=== PATIENT | female | born 1995 | race Caucasian/White ===

== ENCOUNTER 2018-03-28 19:03 | Emergency (ER) | payer OTHER, SELFPAY ==
[2018-03-28] MEDS ORDERED: Sodium Chloride 0.9% 1,000 ML IV ONE (19:32)
[2018-03-28] MEDS ORDERED: Sodium Chloride 0.9% 10 ML Syringe FLUSH PRN (19:32)
[2018-03-28] MEDS ORDERED: Ketorolac 30 MG/ML SDV IVPUSH ONE (19:32)
[2018-03-28] MEDS ORDERED: Sodium Chloride 0.9% 2.5 ML Syringe FLUSH PRN (19:32)
[2018-03-28] MEDS ORDERED: methylPREDNISolone Sodium Succinate 125 MG/2 ML SDV IVPUSH ONE (19:32)
[2018-03-28] MEDS ORDERED: Ondansetron 4 MG/2 ML SDV IVPUSH ONE (19:32)
[2018-03-28] MEDS ORDERED: diphenhydrAMINE 50 MG/ML SDV IVPUSH ONE (19:33)
--- NOTE | 2018-03-28 19:35 | EDM.PDOC ---
ED HPI GENERAL MEDICAL PROBLEM - General Chief Complaint: Headache Stated Complaint: HEADACHES, NAUSEA Time Seen by Provider: 03/28/18 19:22 - History of Present Illness INITIAL COMMENTS - FREE TEXT/NARRATIVE: HISTORY AND PHYSICAL: History of present illness: The patient is a 22-year-old female who is a 3 para 3 and had a C- section which was scheduled on March 22 and says that when she was discharged on March 24Monday, she went home and felt fine and then Monday evening, 4 nights ago, she started having a left-sided headache. His been dull and achy and has been associated with nausea but no actual vomiting. She has no chest pain or abdominal pain and she feels that her scar is healing well and she is having a normal postoperative course and she has done this before. During the course of her she did have an episode of SVT and Dr. Harriet scales multimedia developer was involved and his consult has been reviewed by me. She had an echocardiogram and has a Zio monitor in place on her chest that she will mail back on April 05. She has not had any palpitations. With her she had a one shot spinal and no epidural anesthesia. She says she has had headaches before but this seems to not be going away which is what concerned her. She has Percocet and Motrin him her that she's been using for pain and does not feel like it's improving. She has no leg pain or swelling no urinary complaints and says she has not had a bowel movement since the surgery. She has attempted to contact the clinic and known has gotten back to her about these problems. She has no upper respiratory infections no sinus pressure or drainage no sore throat no ear pain. She has no pain in her neck. She says she feels worse when she lays down. Patient is currently breast-feeding and doing well with that. She is eating and drinking normally although she has the nausea. Patient says that with this she had no issues with hypertension or any other associated complications. She's not had hypertension with her prior pregnancies either. Please note that the headache did start 4 days ago and it has been constant not changing in intensity or character and the patient is here more because she could not get in touch with anyone in the clinic and it is not responded to her medications that she has. The headache was not sudden in onset Review of systems: As per history of present illness and below otherwise all systems reviewed and negative. Past medical history: As per history of present illness and as reviewed below otherwise noncontributory. Surgical history: As per history of present illness and as reviewed below otherwise noncontributory. Social history: No reported history of drug or alcohol abuse. Family history: As per history of present illness and as reviewed below otherwise noncontributory. Physical exam: General: Well-developed well-nourished female who is nontoxic and vital signs were noted by me. Her initial blood pressure 147/87 is higher than ones documented with her admission for her and delivery. She is nontoxic though and moves easily in the bed HEENT: Atraumatic, normocephalic, pupils reactive, negative for conjunctival pallor or scleral icterus, mucous membranes moist, throat clear, neck supple, nontender, trachea midline. There is some shoddy anterior cervical adenopathy but no nuchal rigidity and no posterior adenopathy. There is no sinus tenderness temporal artery tenderness or scalp tenderness. Lungs: Clear to auscultation, breath sounds equal bilaterally, chest nontender. Heart: S1S2, regular rate and rhythm no overt murmurs Abdomen: Soft, nondistended, nontender. Negative for masses or hepatosplenomegaly. Slightly quiet bowel sounds and her incision in the lower abdominal wall is healing nicely without any erythema or drainage. Pelvis: Stable nontender. Genitourinary: Deferred. Rectal: Deferred. Extremities: Atraumatic, negative for cords or calf pain. Neurovascular unremarkable. There is no pedal edema or leg asymmetry Neuro: Awake, alert, oriented. Cranial nerves II through XII unremarkable. Cerebellum unremarkable. Motor and sensory unremarkable throughout. Exam nonfocal. Reflexes are +2 over 4 patellar and there is no evidence of any clonus Diagnostics: CBC CMP INR UA CT scan of the head uric acid Close monitoring of the patient's blood pressure Therapeutics: IV fluids Zofran Toradol Benadryl Procardia XL In review of my patients admission for her her blood pressure ran 110s -120s over 60s to 80s. Today's numbers are significantly different from that. Patient says that her headache is gone after the medications and I've given and I discussed with her the lab test results and my concerns about her blood pressure. Her current blood pressure in the supine position on her side is 142/ 86. I will discuss this case with Dr. Raymond 2051: Case was discussed with Dr. Raymond. He is aware that the patient has appointment on Monday and wants her to keep that appointment and he would like me to start her on Procardia XL 30 mg daily. I will give her a dose here. Impression: Headache, elevated blood pressure Definitive disposition and diagnosis as appropriate pending reevaluation and review of above. Left Headache Pain Score (Numeric/FACES): 10 - Related Data Allergies Allergy/AdvReac Type Severity Reaction Status Date / Time No Known Allergies Allergy Verified 03/28/18 19:24 Home Meds: Home Meds Iron 65 mg PO DAILY 03/19/18 [History] Ibuprofen [Motrin] 800 mg PO ASDIRECTED 03/28/18 [History] oxyCODONE HCl/Acetaminophen [Percocet 5-325 mg Tablet] 1 each PO ASDIRECTED 08/08 [History] Past Medical History - Past Health History Medical/Surgical History: Denies Medical/Surgical History HEENT History: Reports: None Cardiovascular History: Reports: None Respiratory History: Reports: None Gastrointestinal History: Reports: Other (See Below) Other Gastrointestinal History: occasional heartburn with 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: Musculoskeletal History: Reports: None Neurological History: Reports: None Psychiatric History: Reports: Anxiety Endocrine/Metabolic History: Reports: None Hematologic History: Reports: Iron Deficiency Immunologic History: Reports: None Oncologic (Cancer) History: Reports: None Dermatologic History: Reports: None - Infectious Disease History Infectious Disease History: Reports: None - Past Surgical History Head Surgeries/Procedures: Reports: None Female Surgical History: Reports: Section Social & Family History - Family History HEENT: Reports: None Cardiac: Reports: Heart Failure, Hypertension Respiratory: Reports: Asthma GI: Reports: None : Reports: None OBGYN: Reports: Musculoskeletal: Reports: None Neurological: Reports: None Psychiatric: Reports: None Endocrine/Metabolic: Reports: Diabetes, type II Hematologic: Reports: None Immunologic: Reports: None Dermatologic: Reports: None Oncologic: Reports: Breast - Tobacco Use Smoking Status *Q: Never Smoker - Caffeine Use Caffeine Use: Reports: Soda - Recreational Drug Use Recreational Drug Use: No ED ROS GENERAL - Review of Systems Review Of Systems: ROS reveals no pertinent complaints other than HPI. ED EXAM, GENERAL - Physical Exam Exam: See Below (See dictation) Course - Vital Signs Last Recorded V/S: Last Vital Signs Temp 36.5 C 03/28/18 19:21 Pulse 56 L 03/28/18 19:21 Resp 18 03/28/18 19:21 BP 156/103 H 03/28/18 20:28 Pulse Ox 98 03/28/18 19:21 - Orders/Labs/Meds Orders: Active Orders 24 hr Category Date Time Status NIFEdipine [Procardia XL] Med 03/28/18 20:52 Once 30 mg PO ONETIME ONE Sodium Chloride 0.9% [Saline Flush] Med 03/28/18 19:32 Active 10 ml FLUSH ASDIRECTED PRN Sodium Chloride 0.9% [Saline Flush] Med 03/28/18 19:32 Active 2.5 ml FLUSH ASDIRECTED PRN Saline Lock Insert [OM.PC] Stat Oth 03/28/18 19:31 Ordered Medication Orders Nifedipine (Procardia Xl) 30 mg PO ONETIME ONE Stop: 03/28/18 20:53 Sodium Chloride (Saline Flush) 10 ml FLUSH ASDIRECTED PRN PRN Reason: Keep Vein Open Sodium Chloride (Saline Flush) 2.5 ml FLUSH ASDIRECTED PRN PRN Reason: Keep Vein Open Labs: Laboratory Tests 03/28/18 03/28/18 03/28/18 Range/Units 19:25 19:30 19:30 WBC 7.45 (4.0-11.0) K/uL RBC 4.17 L (4.30-5.90) M/uL Hgb 13.5 (12.0-16.0) g/dL Hct 38.8 (36.0-46.0) % MCV 93.0 (80.0-98.0) fL MCH 32.4 H (27.0-32.0) pg MCHC 34.8 (31.0-37.0) g/dL RDW Std Deviation 41.2 (28.0-62.0) fl RDW Coeff of Bell 12 (11.0-15.0) % Plt Count 265 (150-400) K/uL MPV 8.90 (7.40-12.00) fL Neut % (Auto) 71.4 (48.0-80.0) % Lymph % (Auto) 20.8 (16.0-40.0) % [place] % (Auto) 6.0 (0.0-15.0) % Eos % (Auto) 1.7 (0.0-7.0) % Baso % (Auto) 0.1 (0.0-1.5) % Neut # (Auto) 5.3 (1.4-5.7) K/uL Lymph # (Auto) 1.6 (0.6-2.4) K/uL [place] # (Auto) 0.5 (0.0-0.8) K/uL Eos # (Auto) 0.1 (0.0-0.7) K/uL Baso # (Auto) 0.0 (0.0-0.1) K/uL Nucleated RBC % 0.0 /100WBC Nucleated RBCs # 0 K/uL INR 1.07 Sodium (136-145) mmol/L Potassium (3.5-5.1) mmol/L Chloride (98-107) mmol/L Carbon Dioxide (21.0-32.0) mmol/L BUN (7.0-18.0) mg/dL Creatinine (0.6-1.0) mg/dL Est Cr Clr Drug Dosing mL/min Estimated GFR (MDRD) ml/min Glucose (74-106) mg/dL Uric Acid (2.6-7.2) mg/dL Calcium (8.5-10.1) mg/dL Total Bilirubin (0.2-1.0) mg/dL AST (15-37) IU/L ALT (14-63) IU/L Alkaline Phosphatase (46-116) U/L Total Protein (6.4-8.2) g/dL Albumin (3.4-5.0) g/dL Globulin (2.6-4.0) g/dL Albumin/Globulin Ratio (0.9-1.6) Urine Color YELLOW Urine Appearance SLT CLOUDY Urine pH 7.0 (5.0-8.0) Ur Specific [place] 1.010 (1.001-1.035) Urine Protein NEGATIVE (NEGATIVE) mg/dL Urine Glucose (UA) NEGATIVE (NEGATIVE) mg/dL Urine Ketones NEGATIVE (NEGATIVE) mg/dL Urine Occult Blood LARGE H (NEGATIVE) Urine Nitrite NEGATIVE (NEGATIVE) Urine Bilirubin NEGATIVE (NEGATIVE) Urine Urobilinogen 0.2 (<2.0) EU/dL Ur Leukocyte Esterase NEGATIVE (NEGATIVE) Urine RBC 1-2 (0-2/HPF) Urine WBC 1-2 (0-5/HPF) Ur Epithelial Cells MODERATE (NONE-FEW) Urine Bacteria FEW (NEGATIVE) 03/28/18 03/28/18 Range/Units 19:30 19:30 WBC (4.0-11.0) K/uL RBC (4.30-5.90) M/uL Hgb (12.0-16.0) g/dL Hct (36.0-46.0) % MCV (80.0-98.0) fL MCH (27.0-32.0) pg MCHC (31.0-37.0) g/dL RDW Std Deviation (28.0-62.0) fl RDW Coeff of Bell (11.0-15.0) % Plt Count (150-400) K/uL MPV (7.40-12.00) fL Neut % (Auto) (48.0-80.0) % Lymph % (Auto) (16.0-40.0) % [place] % (Auto) (0.0-15.0) % Eos % (Auto) (0.0-7.0) % Baso % (Auto) (0.0-1.5) % Neut # (Auto) (1.4-5.7) K/uL Lymph # (Auto) (0.6-2.4) K/uL [place] # (Auto) (0.0-0.8) K/uL Eos # (Auto) (0.0-0.7) K/uL Baso # (Auto) (0.0-0.1) K/uL Nucleated RBC % /100WBC Nucleated RBCs # K/uL INR Sodium 142 (136-145) mmol/L Potassium 4.1 (3.5-5.1) mmol/L Chloride 104 (98-107) mmol/L Carbon Dioxide 26.5 (21.0-32.0) mmol/L BUN 14 (7.0-18.0) mg/dL Creatinine 0.9 (0.6-1.0) mg/dL Est Cr Clr Drug Dosing 93.73 mL/min Estimated GFR (MDRD) > 60.0 ml/min Glucose 94 (74-106) mg/dL Uric Acid 8.5 H (2.6-7.2) mg/dL Calcium 9.8 (8.5-10.1) mg/dL Total Bilirubin 0.4 (0.2-1.0) mg/dL AST 34 (15-37) IU/L ALT 47 (14-63) IU/L Alkaline Phosphatase 87 (46-116) U/L Total Protein 7.7 (6.4-8.2) g/dL Albumin 3.1 L (3.4-5.0) g/dL Globulin 4.6 H (2.6-4.0) g/dL Albumin/Globulin Ratio 0.7 L (0.9-1.6) Urine Color Urine Appearance Urine pH (5.0-8.0) Ur Specific [place] (1.001-1.035) Urine Protein (NEGATIVE) mg/dL Urine Glucose (UA) (NEGATIVE) mg/dL Urine Ketones (NEGATIVE) mg/dL Urine Occult Blood (NEGATIVE) Urine Nitrite (NEGATIVE) Urine Bilirubin (NEGATIVE) Urine Urobilinogen (<2.0) EU/dL Ur Leukocyte Esterase (NEGATIVE) Urine RBC (0-2/HPF) Urine WBC (0-5/HPF) Ur Epithelial Cells (NONE-FEW) Urine Bacteria (NEGATIVE) Meds: Medications Generic Name Dose Route Start Last Admin Trade Name Freq PRN Reason Stop Dose Admin Nifedipine 30 mg 03/28/18 20:52 Procardia Xl PO 03/28/18 20:53 ONETIME ONE Sodium Chloride 10 ml 03/28/18 19:32 Saline Flush FLUSH ASDIRECTED PRN Keep Vein Open Sodium Chloride 2.5 ml 03/28/18 19:32 Saline Flush FLUSH ASDIRECTED PRN Keep Vein Open Discontinued Medications Generic Name Dose Route Start Last Admin Trade Name Freq PRN Reason Stop Dose Admin Diphenhydramine HCl 50 mg 03/28/18 19:33 03/28/18 20:06 Benadryl IVPUSH 03/28/18 19:34 50 mg ONETIME ONE Administration Sodium Chloride 1,000 mls @ 999 mls/hr 03/28/18 19:32 03/28/18 19:59 Normal Saline IV 03/28/18 20:32 999 mls/hr STAT ONE Administration Ketorolac Tromethamine 30 mg 03/28/18 19:32 03/28/18 19:59 Toradol IVPUSH 03/28/18 19:33 30 mg ONETIME ONE Administration Methylprednisolone Sodium Succinate 125 mg 03/28/18 19:32 03/28/18 20:02 Solu-Medrol IVPUSH 03/28/18 19:33 125 mg ONETIME ONE Administration Ondansetron HCl 4 mg 03/28/18 19:32 03/28/18 20:03 Zofran IVPUSH 03/28/18 19:33 4 mg ONETIME ONE Administration Departure - Departure Time of Disposition: 20:54 Disposition: Home, Self-Care 01 Condition: Good Clinical Impression: hypertension Headache Qualifiers: Headache type: unspecified Headache chronicity pattern: unspecified pattern Intractability: not intractable Qualified Code(s): R51 - Headache - Discharge Information Referrals: Yvonne Roche CNM [Primary Care Provider] - Forms: ED Department Discharge Additional Instructions: The following information is given to patients seen in the emergency department who are being discharged to home. This information is to outline your options for follow-up care. We provide all patients seen in our emergency department with a follow-up referral. The need for follow-up, as well as the timing and circumstances, are variable depending upon the specifics of your emergency department visit. If you don't have a primary care physician on staff, we will provide you with a referral. We always advise you to contact your personal physician following an emergency department visit to inform them of the circumstance of the visit and for follow-up with them and/or the need for any referrals to a consulting specialist. The emergency department will also refer you to a specialist when appropriate. This referral assures that you have the opportunity for followup care with a specialist. All of these measure are taken in an effort to provide you with optimal care, which includes your followup. Under all circumstances we always encourage you to contact your private physician who remains a resource for coordinating your care. When calling for followup care, please make the office aware that this follow-up is from your recent emergency room visit. If for any reason you are refused follow-up, please contact the [facility] emergency department at and ask to speak to the emergency department charge nurse. [facility] [address] [facility] [address] [place] [address] Please use medications you have at home for pain and add Benadryl and the Zofran you have been prescribed. Please keep your appointment for Monday in the clinic for reevaluation of your headache and blood pressures. Please fill your prescription for the Procardia XL that you've been prescribed by Dr. Raymond and take that at the same time every day. Return to ER as needed and as discussed and push hydration - My Orders Last 24 Hours: My Active Orders 03/28/18 19:31 Saline Lock Insert [OM.PC] Stat 03/28/18 19:32 Sodium Chloride 0.9% [Saline Flush] 10 ml FLUSH ASDIRECTED PRN Sodium Chloride 0.9% [Saline Flush] 2.5 ml FLUSH ASDIRECTED PRN 03/28/18 20:52 NIFEdipine [Procardia XL] 30 mg PO ONETIME ONE - Assessment/Plan Last 24 Hours: My Active Orders 03/28/18 19:31 Saline Lock Insert [OM.PC] Stat 03/28/18 19:32 Sodium Chloride 0.9% [Saline Flush] 10 ml FLUSH ASDIRECTED PRN Sodium Chloride 0.9% [Saline Flush] 2.5 ml FLUSH ASDIRECTED PRN 03/28/18 20:52 NIFEdipine [Procardia XL] 30 mg PO ONETIME ONE
--- NOTE | 2018-03-28 20:01 | CT ---
INDICATION: Left sided headache TECHNIQUE: CT Head without i.v. contrast. COMPARISON: None FINDINGS: CSF space: The ventricles are normal for age. Brain: No evidence of mass, acute infarction or hemorrhage is seen. No mass-effect or midline shift is seen. The brain parenchyma is otherwise normal in appearance with preservation of the jarvis-white matter junction. Calvarium: The visualized paranasal sinuses are well aerated. The mastoid air cells are clear. The visualized orbits are grossly unremarkable. The calvarium is unremarkable in appearance with no fractures identified. IMPRESSION: 1. No evidence of acute infarction, intracranial hemorrhage, or mass-effect seen. Please note that all CT scans at this facility use dose modulation, iterative reconstruction, and/or weight-based dosing when appropriate to reduce radiation dose to as low as reasonably achievable. Dictated by: Ralph Grewal MD @ 03/28/2018 19:59:59 (Electronically Signed)
[2018-03-28 20:28] VITALS: BP 156/103
[2018-03-28 20:30] LABS: CHLORIDE,CL 104 mmol/L (98-107); SODIUM,NA 142 mmol/L (136-145)
[2018-03-28] MEDS ORDERED: NIFEdipine 30 MG Tab.ER PO ONE (20:52)
== END 2018-03-28 21:10 | disposition home or self-care (01) ==
LOC: MW.ED 19:03
DX: O90.89 Other complications of the puerperium, not elsewhere classified (principal); R51 Headache; O16.5 Unspecified maternal hypertension, complicating the puerperium
CPT/HCPCS: 36415; 70450; 80053; 81001; 84550; 85025; 85610; 96361; 96374; 96375; 99284; A9270; J1200; J1885; J2405; J2930; J7040

== ENCOUNTER 2018-06-05 13:34 | Emergency (ER) | payer MEDICAID, OTHER ==
[2018-06-05 13:50] VITALS: BP 130/88
--- NOTE | 2018-06-05 14:09 | EDM.PDOC ---
ED HPI GENERAL MEDICAL PROBLEM - General Chief Complaint: Behavioral/Psych Stated Complaint: ANXIETY AND DEPRESSION Time Seen by Provider: 06/05/18 13:45 - History of Present Illness INITIAL COMMENTS - FREE TEXT/NARRATIVE: HISTORY AND PHYSICAL: History of present illness: Past 22-year-old white female with past medical history significant for anxiety and bipolar disorder who presents here with significant other with a depressive episode patient states she been feeling more depressed more anxious she's been unable to secure an appointment with her primary care provider and has been noncompliant with her medications she denies suicidal or homicidal ideation now her boyfriend does express concerns regarding her medical noncompliance in increased anxiety and depression. Patient and boyfriend are in agreement with following up with their primary care provider tomorrow and returning for any exacerbation of symptoms or other concerns as we discussed regarding anxiety increased depressive symptoms any suicidal ideation there are no firearms available at home or any other concerns of that nature per boyfriend he has secured all of them Review of systems: As per history of present illness and below otherwise all systems reviewed and negative. Past medical history: As per history of present illness and as reviewed below otherwise noncontributory. Surgical history: As per history of present illness and as reviewed below otherwise noncontributory. Social history: No reported history of drug or alcohol abuse. Family history: As per history of present illness and as reviewed below otherwise noncontributory. Physical exam: HEENT: Atraumatic, normocephalic, pupils reactive, negative for conjunctival pallor or scleral icterus, mucous membranes moist, throat clear, neck supple, nontender, trachea midline. Lungs: Clear to auscultation, breath sounds equal bilaterally, chest nontender. Heart: S1S2, regular, negative for clicks, rubs, or JVD. Abdomen: Soft, nondistended, nontender. Negative for masses or hepatosplenomegaly. Negative for costovertebral tenderness. Pelvis: Stable nontender. Genitourinary: Deferred. Rectal: Deferred. Extremities: Atraumatic, negative for cords or calf pain. Neurovascular unremarkable. Neuro: Awake, alert, oriented. Cranial nerves II through XII unremarkable. Cerebellum unremarkable. Motor and sensory unremarkable throughout. Exam nonfocal. Diagnostics: None Therapeutics: None Impression: #1 medical screening exam #2 bipolar disorder #3 anxiety Definitive disposition and diagnosis as appropriate pending reevaluation and review of above. 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: Musculoskeletal History: Reports: None Neurological History: Reports: None Psychiatric History: Reports: Anxiety, Bipolar, Depression Endocrine/Metabolic History: Reports: None Hematologic History: Reports: Iron Deficiency Immunologic History: Reports: None Oncologic (Cancer) History: Reports: None Dermatologic History: Reports: None - Infectious Disease History Infectious Disease History: Reports: None - Past Surgical History Head Surgeries/Procedures: Reports: None HEENT Surgical History: Reports: None Cardiovascular Surgical History: Reports: None Respiratory Surgical History: Reports: None GI Surgical History: Reports: None Female Surgical History: Reports: Section Endocrine Surgical History: Reports: None Neurological Surgical History: Reports: None Musculoskeletal Surgical History: Reports: None Oncologic Surgical History: Reports: None Dermatological Surgical History: Reports: None Social & Family History - Family History HEENT: Reports: None Cardiac: Reports: Heart Failure, Hypertension Respiratory: Reports: Asthma GI: Reports: None : Reports: None OBGYN: Reports: Musculoskeletal: Reports: None Neurological: Reports: None Psychiatric: Reports: None Endocrine/Metabolic: Reports: Diabetes, type II Hematologic: Reports: None Immunologic: Reports: None Dermatologic: Reports: None Oncologic: Reports: Breast - Tobacco Use Smoking Status *Q: Never Smoker Second Hand Smoke Exposure: No - Caffeine Use Caffeine Use: Reports: None - Recreational Drug Use Recreational Drug Use: No ED ROS GENERAL - Review of Systems Review Of Systems: ROS reveals no pertinent complaints other than HPI. ED EXAM, GENERAL - Physical Exam Exam: See Below (See dictation) Course - Vital Signs Last Recorded V/S: Last Vital Signs Temp 36.4 C 06/05/18 13:46 Pulse 97 06/05/18 13:46 Resp 18 06/05/18 13:46 BP 130/88 04/16/19 13:46 Pulse Ox 98 06/05/18 13:46 Departure - Departure Time of Disposition: 14:08 Disposition: Home, Self-Care 01 Condition: Good Clinical Impression: Anxiety, Bipolar disorder - Discharge Information Referrals: PCP,None [Primary Care Provider] - Additional Instructions: The following information is given to patients seen in the emergency department who are being discharged to home. This information is to outline your options for follow-up care. We provide all patients seen in our emergency department with a follow-up referral. The need for follow-up, as well as the timing and circumstances, are variable depending upon the specifics of your emergency department visit. If you don't have a primary care physician on staff, we will provide you with a referral. We always advise you to contact your personal physician following an emergency department visit to inform them of the circumstance of the visit and for follow-up with them and/or the need for any referrals to a consulting specialist. The emergency department will also refer you to a specialist when appropriate. This referral assures that you have the opportunity for followup care with a specialist. All of these measure are taken in an effort to provide you with optimal care, which includes your followup. Under all circumstances we always encourage you to contact your private physician who remains a resource for coordinating your care. When calling for followup care, please make the office aware that this follow-up is from your recent emergency room visit. If for any reason you are refused follow-up, please contact the [facility] emergency department at and asked to speak to the emergency department charge nurse. Keep appointment tomorrow with Yvonne muñoz as needed as discussed
== END 2018-06-05 15:01 | disposition home or self-care (01) ==
LOC: MW.ED 13:34
DX: F31.9 Bipolar disorder, unspecified (principal); F41.9 Anxiety disorder, unspecified; Z79.899 Other long term (current) drug therapy
CPT/HCPCS: 99282; 99283